=== PATIENT | female | born 2000 | race Caucasian/White ===

== ENCOUNTER 2018-01-10 13:17 | Outpatient (RCR) | payer OTHER, SELFPAY | END 2018-01-10 13:18 | disposition home or self-care (01) | LOC: PT 13:17 | PROVIDERS: Family Provider Pediatrics; Visit Provider Orthopaedic Surgery Adult Reconstructive Orthopaedic Surgery | DX: M25.561 Pain in right knee (principal); M25.562 Pain in left knee | CPT/HCPCS: 97163 ==